=== PATIENT | female | born 1990 | race American Indian/Alaskan Native ===

== ENCOUNTER 2020-06-27 14:34 | Inpatient (IN) | payer MEDICAID ==
[2020-06-27] MEDS ORDERED: LIDOCAINE (2%) 20 MG/1 ML VIAL 20 ML MDV INFILTRATI ONE (15:38)
[2020-06-27] MEDS ORDERED: NALOXONE 0.4 MG/1 ML INJ IV PRN (15:38)
[2020-06-27] MEDS ORDERED: ONDANSETRON 4 MG/2 ML INJ IV PRN (15:38)
[2020-06-27] MEDS ORDERED: MINERAL OIL 30 ML ORAL LIQD PO PRN (15:38)
[2020-06-27] MEDS ORDERED: METHYLERGONOVINE MALEATE 0.2 MG/ML VIAL IM PRN (15:38)
[2020-06-27] MEDS ORDERED: TERBUTALINE 1 MG/1 ML INJ SUB-Q PRN (15:38)
[2020-06-27] MEDS ORDERED: miSOPROStol 200 MCG TAB PR PRN (15:38)
[2020-06-27] MEDS ORDERED: fentaNYL 100 MCG/2 ML INJ IV PRN (15:38)
[2020-06-27] MEDS ORDERED: BUTORPHANOL 2 MG/1 ML INJ IV PRN (15:38)
[2020-06-27] MEDS ORDERED: OXYTOCIN DRIP 30 UNITS/500 ML BAG IV SCH ×2 (16:00)
[2020-06-27] MEDS ORDERED: LACTATED RINGERS 1,000 ML IV SCH (16:45)
[2020-06-27 17:54] LABS: Hemoglobin 10.7 gm/dl (10.1-14.3); Mean Corpuscular HGB Conc 33 % (30-34); Mean Corpuscular Volume 76 fl (79-97); Platelet Count 110 K/mm3 (140-440); Red Blood Count 4.37 M/mm3 (3.65-5.03); Red Cell Distribution Width 17.6 % (13.2-15.2)
[2020-06-27] MEDS ORDERED: AMPICILLIN/NS 2 GM/100 ML 2 GM/100 ML BAG IV ONE (19:00)
[2020-06-27] MEDS ORDERED: DINOPROSTONE 10 MG VAG SUPP VG ONE (19:38)
[2020-06-27] MEDS ORDERED: valACYclovir 500 MG TAB PO SCH (22:00)
[2020-06-27] MEDS: AMPICILLIN/NS 1 GM/50 ML 1 GM/50 ML BAG IV SCH (22:43)
[2020-06-28] MEDS ORDERED: FAMOTIDINE 20 MG TAB PO SCH (01:00)
[2020-06-28] MEDS ORDERED: LIDOCAINE (2%) 20 MG/1 ML VIAL 20 ML MDV INFILTRATI ONE (01:13)
--- NOTE | 2020-06-28 01:43 | History and Physical Report ---
History of Present Illness Date of examination: 06/28/20 Date of admission: 06/27/20 14:34 Chief complaint: induction of labor History of present illness: Pt is a 29 year old BEATRIS 06/30/20 at 39w5d presents for scheduled induction of labor secondary to morbid obesity. She reports contractions since 06/27/20 morning. She denies leakage of fluid or vaginal bleeding. She has had care at [facility] since 19 wks with comanagement by [facility] co mplicated by morbid obesity, genital herpes without lesion or prodrome, both parents are silent alpha thalassemia carriers, and GBS positive status. order desk caller provider notified that there was a delay in obtaining IV access on initial admission. Second call to on-call OB that patient progressed rapidly from 1 to 9 cm. 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: herpes (no lesion or prodrome ) Family/Genetic History: none Social history: no significant social history - Obstetrical History Expected Date of Delivery: 06/30/20 Actual Gestation: 39 Week(s) 5 Day(s) : 5 Para: 3 Hx # Term Pregnancies: 3 Number of Pregnancies: 0 Spontaneous Abortions: 0 Induced : 1 Number of Living Children: 3 Medications and Allergies Allergies Allergy/AdvReac Type Severity Reaction Status Date / Time No Known Allergies Allergy Unverified 06/27/20 18:27 Home Medications Medication Instructions Recorded Confirmed Last Taken Type Famotidine [Pepcid] 20 mg PO BID 06/27/20 06/27/20 06/26/20 History Pnv,Calcium 72/Iron/Folic Acid 1 each PO DAILY 06/27/20 06/27/20 2 Days Ago History [ Plus Tablet] ~06/25/20 Valacyclovir HCl [Valtrex] 1,000 mg PO DAILY 06/27/20 06/27/20 06/26/20 History Active Meds: Active Medications Butorphanol Tartrate (Stadol) 2 mg IV Q2H PRN PRN Reason: Pain , Severe (7-10) Last Admin: 06/27/20 23:41 Dose: 2 mg Documented by: Ephedrine Sulfate (Ephedrine Sulfate) 10 mg IV Q2M PRN PRN Reason: Hypotension Famotidine (Pepcid) 20 mg PO BID [facility] Last Admin: 06/28/20 01:09 Dose: 20 mg Documented by: Fentanyl (Sublimaze) 100 mcg IV Q2H PRN PRN Reason: Pain,Severe (7-10) LABOR PAIN Last Admin: 06/27/20 22:41 Dose: 100 mcg Documented by: Oxytocin/Sodium Chloride (Pitocin/Ns 30 Unit/500ml) 30 units in 500 mls @ 2 mls/hr IV TITR DANN; Protocol Last Admin: 06/28/20 01:10 Dose: 2 ml/hr, 2 mls/hr Documented by: Lactated Ringer's (Lactated Ringers) 1,000 mls @ 125 mls/hr IV DIRECT DANN Oxytocin/Sodium Chloride (Pitocin/Ns 30 Unit/500ml) 30 units in 500 mls @ 40 mls/hr IV TITR DANN; Protocol Ampicillin Sodium (Ampicillin/Ns 1 Gm/50 Ml) 1 gm in 50 mls @ 100 mls/hr IV Q4H DANN; Protocol Last Admin: 06/27/20 22:43 Dose: 100 mls/hr Documented by: Methylergonovine Maleate (Methergine) 0.2 mg IM ONCE PRN PRN Reason: Uterine Bleeding Mineral Oil (Mineral Oil) 30 ml PO QHS PRN PRN Reason: Constipation Misoprostol (Cytotec) 800 mcg VT ONCE PRN PRN Reason: Uterine Bleeding Naloxone HCl (Naloxone) 0.1 mg IV Q2MIN PRN PRN Reason: Res Rate </= 8 or 02 SAT < 92% Ondansetron HCl (Zofran) 4 mg IV Q8H PRN PRN Reason: Nausea And Vomiting Terbutaline Sulfate (Brethine) 0.25 mg SUB-Q ONCE PRN PRN Reason: Hyperstimulation/Hypertonicity Valacyclovir HCl (Valtrex) 1,000 mg PO QDAY [facility] Last Admin: 06/27/20 22:43 Dose: 1,000 mg Documented by: Review of Systems All systems: negative - Vital Signs Vital signs: Vital Signs Pulse BP 90 141/87 06/27/20 15:23 06/27/20 15:23 Temp Pulse Resp BP Pulse Ox 99.3 F 108 H 20 138/86 97 06/27/20 21:45 06/28/20 01:33 06/27/20 23:41 06/28/20 01:26 06/28/20 01:33 - Physical Exam Breasts: Positive: deferred Abdomen: Positive: soft (obese, gravid ) Genitourinary (Female): Positive: normal external genitalia Uterus: Positive: enlarged (gravid ) Extremities: Positive: edema (trace ) - Obstetrical FHR: auscultation normal Uterine Contraction Monitor Mode: External Cervical Dilatation: 9 Cervical Effacement Percentage: 90 station: -1 Uterine Contraction Pattern: Regular Uterine Tone Measurement Phase: Resting Uterine Contraction Intensity: Strong/Firm Results Result Diagrams: 06/27/20 17:00 Abnormal lab results 06/27/20 Range/Units 17:00 MCV 76 L (79-97) fl MCH 25 L (28-32) pg RDW 17.6 H (13.2-15.2) % Plt Count 110 L (140-440) K/mm3 All other labs normal. Assessment and Plan A: IUP at 39w5d Morbid Obesity Late Entry to Care Gestational Hypertension Genital Herpes without lesion or prodrome Pt and father of baby are silent alpha thalassemia carriers GBS Positive s/p two doses of ampicillin P: Admit to labor and delivery Routine intrapartum care Closely monitor maternal and status
[2020-06-28 02:00] LABS: Alanine Aminotransferase 32 units/L (7-56); Albumin 3.3 g/dL (3.9-5); Blood Urea Nitrogen 5 mg/dL (7-17); Calcium 9.2 mg/dL (8.4-10.2); Hemolysis Index 8
[2020-06-28 02:12] LABS: BUN/Creatinine Ratio 8
--- NOTE | 2020-06-28 02:27 | Event Note ---
Date: 06/28/20 Pt called out due to patient discomfort. Category II tracing. SVE: /-1. Continue fluid bolus in preparation for epidural.
[2020-06-28] MEDS: ePHEDrine SULFATE 50 MG/1 ML INJ IV PRN ×2 (04:05→04:10)
--- NOTE | 2020-06-28 04:07 | Anesthesia Consultation ---
Anesthesia Consult and Med Hx Date of service: 06/28/20 - Airway Anesthetic Teeth Evaluation: Good ROM Head & Neck: Adequate Mental/Hyoid Distance: Adequate Mallampati Class: Class IV Intubation Access Assessment: Possibly Difficult - Pulmonary Exam CTA: Yes - Cardiac Exam Cardiac Exam: RRR - Pre-Operative Health Status ASA Pre-Surgery Classification: ASA3 Proposed Anesthetic Plan: Epidural, Spinal - Pulmonary Hx Smoking: No Hx Asthma: No COPD: No Hx Pneumonia: No Hx Sleep Apnea: No (likely undiagnosed) - Cardiovascular System Hx Hypertension: No Hx Heart Attack/AMI: No Hx Angina: No - Central Nervous System Hx Seizures: No Hx Psychiatric Problems: No - Gastrointestinal Hx Gastroesophageal Reflux Disease: Yes - Endocrine Hx Renal Disease: No Hx End Stage Renal Disease: No Hx Insulin Dependent Diabetes: No Hx Non-Insulin Dependent Diabetes: No Hx Hypothyroidism: No Hx Hyperthyroidism: No - Hematic Hx Anemia: No Hx Sickle Cell Disease: No - Other Systems Hx Alcohol Use: No Hx Obesity: Yes
[2020-06-28] MEDS ORDERED: NALOXONE 2 MG/2 ML INJ IV PRN (04:11)
[2020-06-28] MEDS ORDERED: NalbUPHINE 10 MG/1 ML INJ IV PRN (04:11)
[2020-06-28] MEDS ORDERED: diphenhydrAMINE 50 MG/ML VIAL IV PRN (04:11)
[2020-06-28] MEDS ORDERED: ePHEDrine SULFATE 50 MG/1 ML INJ IV PRN (04:11)
--- NOTE | 2020-06-28 04:11 | Progress Note ---
Labor Epidural - Labor Epidural Start Time: 03:24 Stop Time: 04:05 Performed by:: PACHECO MEDINA Procedure: Patient is requesting combined spinal epidural for labor and pain. H&P, labs were reviewed. All questions and concerns were answered. Informed consent was obtained. Timeout performed. Patient in sitting position on side of bed. Sterile prep and drape was performed. 3 mL 1% lidocaine skin wheal at L [3]-L [4]. 18-gauge Touhy epidural needle advanced without success. 3 mL 1% lidocaine skin wheal at L [2]-L [3]. 18-gauge Touhy epidural needle advanced to [id number] using air technique, [9cm]. 27-gauge spinal needle advanced, positive free-flowing CSF. Spinal dose of [Marcaine 3.375mg]. Epidural catheter advanced to [15] cm. [-] Aspiration, [-] test dose. Sterile dressing applied. Patient tolerated procedure well.
--- NOTE | 2020-06-28 04:25 | Event Note ---
Date: 06/28/20 On-call provider called to the bedside secondary to deceleration to 80s after hypotension. Received ephedrine (see nursing notes for exact). SVE: /-2. Continue to monitor clinically.
[2020-06-28] MEDS: AMPICILLIN/NS 1 GM/50 ML 1 GM/50 ML BAG IV SCH (05:00)
[2020-06-28] MEDS ORDERED: fentaNYL-BUPIV 2 MCG/ML-0.125% 200 MCG/100 ML BAG EPIDURAL SCH (05:00)
[2020-06-28] MEDS ORDERED: METOCLOPRAMIDE 10 MG/2 ML INJ ONE (06:51)
[2020-06-28] MEDS ORDERED: FAMOTIDINE 20 MG/2 ML INJ IV ONE ×2 (06:51→07:00)
[2020-06-28] MEDS ORDERED: BICITRA ORAL LIQD 30ML ONE (06:51)
[2020-06-28] MEDS ORDERED: ceFAZolin/Water 2 GM/20 ML 2 GM/20 ML SYRINGE IV ONE (06:51)
--- NOTE | 2020-06-28 06:55 | Event Note ---
Date: 06/28/20 Pt has made no further cervical change. The decision has been made to proceed with section. Anesthesia aware.
[2020-06-28] MEDS ORDERED: LACTATED RINGERS 1,000 ML IV SCH (07:00)
[2020-06-28] MEDS ORDERED: OXYTOCIN DRIP 30 UNITS/500 ML BAG IV SCH (07:00)
[2020-06-28] MEDS ORDERED: BICITRA ORAL LIQD 30ML PO ONE (07:00)
[2020-06-28] MEDS ORDERED: METOCLOPRAMIDE 10 MG/2 ML INJ IV ONE (07:00)
--- NOTE | 2020-06-28 07:04 | Anesthesia Day of Surgery ---
Anesthesia Day of Surgery - Day of Surgery Patient Examined: Yes Patient H&P Reviewed: Yes Patient is NPO: Yes Beta Blockers: No Cardiac Clearance: No Pulmonary Clearance: No Shahab's Test: N/A
[2020-06-28] MEDS ORDERED: LIDOCAINE 2%/EPINEPHRINE 1:200,000 VIAL (20 ML) INFILTRATI ONE (07:05)
[2020-06-28] MEDS ORDERED: ONDANSETRON 4 MG/2 ML INJ ONE (07:33)
[2020-06-28] MEDS ORDERED: KETOROLAC 30 MG/1 ML INJ ONE (07:33)
[2020-06-28] MEDS ORDERED: ceFAZolin/Water 2 GM/20 ML 4 GM/40 ML SYRINGE IV ONE (07:54)
--- NOTE | 2020-06-28 09:13 | Procedure Note ---
OB Delivery Note - Delivery Date of Delivery: 06/28/20 Surgeon: BETITO COURTNEY Estimated blood loss: other (600 mL) - Vaginal Delivery presentation: vertex Delivery position: OA Intrapartum events: PROM->1hr before delivery, meconium, gestational hypertension, prolonged active phase, uterine atony (s/p misoprostol 800 mcg per rectum ) Delivery induction: none Delivery augmentation: rupture of membranes, pitocin Delivery monitor: external FHT, external uterine Route of delivery: Delivery placenta: spontaneous Episiotomy: none Delivery laceration: 2nd degree Delivery repair: vicryl - Infant A at 1 minute: 7 at 5 minutes: 9 Gender: Female (4072g (8lb 15.6 oz) @ 0824 am)
[2020-06-28] MEDS ORDERED: LANOLIN/ZINC/DIMETHICONE (LANSINOH) 7 GM TP PRN ×2 (09:39→10:00)
[2020-06-28] MEDS ORDERED: diphenhydrAMINE 25 MG CAP PO PRN (10:00)
[2020-06-28] MEDS ORDERED: BENZOCAINE/MENTHOL 20/0.5% TOP SPRAY 56 GM TP PRN (10:00)
[2020-06-28] MEDS ORDERED: miSOPROStol 100 MCG TAB PR PRN (10:00)
[2020-06-28] MEDS ORDERED: PROMETHAZINE 25 MG RECT SUPP PR PRN (10:00)
[2020-06-28] MEDS ORDERED: ONDANSETRON 4 MG/2 ML INJ IV PRN (10:00)
[2020-06-28] MEDS ORDERED: WITCH HAZEL/ GLYCERIN PAD TP PRN (10:00)
[2020-06-28] MEDS ORDERED: PROMETHAZINE 25 MG TAB PO PRN (10:00)
[2020-06-28] MEDS: HYDROcodone/ACETAMINOPHEN 5-325 MG TAB PO PRN ×2 (10:15→17:52)
--- NOTE | 2020-06-28 14:31 | Post Anesthesia Evaluation ---
- Post Anesthesia Evaluation Patient Participated: Yes Airway Patent: Yes Stable Respiratory Function: Yes Nausea/Vomiting: No Temp > 96.8F: Yes Pain Manageable: Yes Adequeate Hydration: Yes Anesthesia Complications: No Block Receding Appropriately: Yes Patient on Ventilator: No
[2020-06-28] MEDS: IBUPROFEN 600 MG TAB PO SCH ×2 (16:00→22:24)
[2020-06-28] MEDS ORDERED: MAGNESIUM HYDROXIDE (MOM) ORAL LIQD UDC PO PRN (22:00)
[2020-06-28] MEDS: FERROUS SULFATE 325 MG TAB PO SCH (22:24)
[2020-06-28 22:30] LABS: Hemoglobin 9.5 gm/dl (10.1-14.3); Mean Corpuscular HGB Conc 34 % (30-34); Mean Corpuscular Volume 75 fl (79-97); Platelet Count 218 K/mm3 (140-440); Red Blood Count 3.72 M/mm3 (3.65-5.03); Red Cell Distribution Width 17.5 % (13.2-15.2)
[2020-06-29] MEDS: IBUPROFEN 600 MG TAB PO SCH ×2 (05:46→21:40)
--- NOTE | 2020-06-29 08:09 | Progress Note ---
Assessment and Plan A: S/p , PPD1 EBL 600, Hgb 9.5 on 06/28 Preeclampsia with severe features, PreE labs WNL, asymptomatic Bottle feeding, desires support w/ BF P: Return to L&D, initiate magnesium sulfate x24 hours Initiate labetalol PO consult Monitor clinical status closely Subjective - Subjective Date of service: 06/29/20 Principal diagnosis: s/p , PPD1 Patient reports: appetite normal, voiding normally, pain well controlled, flatus, ambulating normally, no bowel movement [place]: doing well, bottle feeding Objective - Vital Signs Latest vital signs: Vital Signs Temp Pulse Resp BP BP Pulse Ox 06/29/20 00:25 98.2 F 102 H 20 126/63 97 06/28/20 20:46 98.4 F 111 H 20 138/82 97 06/28/20 16:52 99.3 F 106 H 20 146/92 100 06/28/20 11:25 98.3 F 103 H 18 149/88 06/28/20 10:59 118 H 155/77 06/28/20 10:58 118 H 186/101 06/28/20 10:17 113 H 100 06/28/20 10:12 108 H 98 06/28/20 10:07 109 H 98 06/28/20 10:05 106 H 146/81 06/28/20 10:02 105 H 98 06/28/20 09:57 107 H 99 06/28/20 09:52 108 H 99 06/28/20 09:50 104 H 150/79 06/28/20 09:47 106 H 99 06/28/20 09:42 109 H 99 06/28/20 09:37 107 H 100 06/28/20 09:35 105 H 147/85 06/28/20 09:32 108 H 100 06/28/20 09:27 107 H 100 06/28/20 09:22 109 H 98 06/28/20 09:20 116 H 136/76 06/28/20 09:17 112 H 100 06/28/20 09:12 114 H 99 06/28/20 09:07 112 H 100 06/28/20 09:02 112 H 100 06/28/20 08:58 112 H 136/83 06/28/20 08:57 120 H 100 12/01/20 08:50 124 H 100 06/28/20 08:45 118 H 100 06/28/20 08:40 107 H 100 06/28/20 08:35 110 H 143/81 100 06/28/20 08:30 106 H 100 Intake and Output 06/28/20 06/29/20 06/29/20 23:59 07:59 15:59 Intake Total 1560 240 Output Total 900 Balance 660 240 Intake: Oral 840 240 Intake, Free Water 720 Output: Urine 900 Void 900 Other: Total, Intake Amount 240 240 Total, Output Amount 400 # Voids Void 1 1 - Exam Breasts: Present: normal Lungs: Present: Normal air movement Abdomen: Present: normal appearance, soft. Absent: distention, tenderness Uterus: Present: normal, firm, fundal height at umbilicus. Absent: bogginess, tenderness Extremities: Present: normal - Labs Labs: Abnormal lab results 06/28/20 Range/Units 21:15 WBC 16.6 H (4.5-11.0) K/mm3 Hgb 9.5 L (10.1-14.3) gm/dl Hct 28.0 L (30.3-42.9) % MCV 75 L (79-97) fl MCH 26 L (28-32) pg RDW 17.5 H (13.2-15.2) %
[2020-06-29] MEDS ORDERED: CALCIUM GLUCONATE 1000 MG/10 ML INJ IV ONE (08:10)
[2020-06-29] MEDS ORDERED: MAGNESIUM SULFATE 4 GM/100 ML BAG IV SCH (08:30)
[2020-06-29] MEDS ORDERED: MAGNESIUM SULFATE 4 GM/100 ML BAG IV ONE ×2 (08:44)
[2020-06-29] MEDS ORDERED: MAGNESIUM SULFATE 40GM/1000ML 40 GM/1,000 ML BAG IV ONE (08:44)
[2020-06-29] MEDS ORDERED: LACTATED RINGERS 1,000 ML ONE (08:45)
[2020-06-29] MEDS ORDERED: hydrALAZINE 20 MG/1 ML INJ IV PRN (09:00)
[2020-06-29] MEDS ORDERED: CALCIUM GLUCONATE 1,000 MG in SODIUM CHLORIDE 0.9% 100 ML IV SCH (09:00)
[2020-06-29] MEDS ORDERED: LACTATED RINGERS 1,000 ML IV SCH (09:00)
[2020-06-29] MEDS ORDERED: DIPHtheria,PERTUSSIS(ACELL),TETANUS VACCINE/PF 0.5 ML VIAL IM ONE (09:17)
[2020-06-29] MEDS ORDERED: MEASLES, MUMPS & RUBELLA 12,500 UNIT/0.5 ML VACCINE SUB-Q ONE (09:17)
[2020-06-29] MEDS: MAGNESIUM SULFATE 40GM/1000ML 40 GM/1,000 ML BAG IV SCH (09:20)
[2020-06-29] MEDS: FERROUS SULFATE 325 MG TAB PO SCH (21:40)
[2020-06-30] MEDS: MAGNESIUM SULFATE 40GM/1000ML 40 GM/1,000 ML BAG IV SCH (04:14)
[2020-06-30] MEDS: IBUPROFEN 600 MG TAB PO SCH (07:25)
--- NOTE | 2020-06-30 08:19 | Progress Note ---
Assessment and Plan A: S/p , PPD2 EBL 600, Hgb 9.5 on 06/28, acute on chronic anemia due to related blood loss Preeclampsia with severe features, PreE labs WNL, completing 24 hrs Magnesium Sulfate 12/ @ 9am BP well controlled on PO labetalol Headache 4/10 on pain scale Concerns about P: Ferrous sulfate supplementation D/C Magnesium Sulfate today Motrin PRN for GARZA Will hand express and continue to breastfeed Discharge today Subjective - Subjective Date of service: 06/30/20 Principal diagnosis: s/p , PPD1 Interval history: PPD2 s/p complicated by preeclampsia with severe features. Patient reports: pain well controlled, no voiding normally (knutson catheter in place ) : doing well, in NICU (in NICU while mother is on magnesium) Objective - Vital Signs Latest vital signs: Vital Signs Temp Pulse Resp BP BP Pulse Ox 06/30/20 08:02 94 H 100 06/30/20 07:57 93 H 100 06/30/20 07:52 92 H 100 06/30/20 07:47 95 H 100 06/30/20 07:42 98 H 100 06/30/20 07:37 94 H 100 06/30/20 07:32 86 99 06/30/20 07:27 103 H 100 06/30/20 07:22 91 H 99 06/30/20 07:17 92 H 99 06/30/20 07:12 89 137/79 100 06/30/20 07:07 87 100 06/30/20 07:02 83 100 06/30/20 06:57 98 H 100 06/30/20 06:52 91 H 99 06/30/20 06:47 89 99 06/30/20 06:42 106 H 100 06/30/20 06:37 80 99 06/30/20 06:32 89 98 06/30/20 06:27 88 100 06/30/20 06:22 90 100 06/30/20 06:17 89 100 06/30/20 06:16 74 88 06/30/20 06:12 79 117/63 99 06/30/20 06:07 79 99 06/30/20 06:02 77 99 06/30/20 05:57 95 H 99 06/30/20 05:52 89 98 06/30/20 05:47 87 98 06/30/20 05:42 86 98 06/30/20 05:37 86 98 06/30/20 05:32 86 98 06/30/20 05:27 84 98 06/30/20 05:22 86 98 06/30/20 05:17 83 98 06/30/20 05:12 79 115/62 99 06/30/20 05:07 77 100 06/30/20 05:02 79 100 06/30/20 04:57 81 99 06/30/20 04:52 81 100 06/30/20 04:47 91 H 99 06/30/20 04:42 91 H 100 06/30/20 04:37 82 97 06/30/20 04:35 88 90 06/30/20 04:32 82 94 06/30/20 04:29 80 94 06/30/20 04:27 73 97 06/30/20 04:24 87 92 06/30/20 04:22 82 98 06/30/20 04:17 89 99 06/30/20 04:12 82 121/66 100 06/30/20 04:07 84 99 06/30/20 04:02 83 99 06/30/20 03:57 80 99 06/30/20 03:52 82 100 06/30/20 03:47 84 100 06/30/20 03:42 88 99 06/30/20 03:37 94 H 100 06/30/20 03:32 82 100 06/30/20 03:27 84 99 06/30/20 03:22 82 100 06/30/20 03:17 90 100 06/30/20 03:12 86 130/72 06/30/20 03:07 92 H 99 06/30/20 03:02 90 100 06/30/20 02:57 94 H 100 06/30/20 02:52 91 H 100 06/30/20 02:47 85 100 06/30/20 02:42 80 100 06/30/20 02:37 85 99 06/30/20 02:32 91 H 98 06/30/20 02:27 88 99 06/30/20 02:22 95 H 99 06/30/20 02:17 88 98 06/30/20 02:12 88 104/54 97 06/30/20 02:07 89 98 06/30/20 02:02 88 98 06/30/20 01:57 86 98 06/30/20 01:52 87 99 06/30/20 01:47 85 96 06/30/20 01:42 84 99 06/30/20 01:39 87 94 06/30/20 01:37 86 97 06/30/20 01:32 88 93 06/30/20 01:27 90 99 06/30/20 01:22 87 99 06/30/20 01:17 101 H 100 06/30/20 01:12 93 H 124/72 98 06/30/20 01:07 100 H 98 06/30/20 01:02 97 H 99 06/30/20 00:57 91 H 99 06/30/20 00:52 90 99 06/30/20 00:47 91 H 99 06/30/20 00:42 95 H 99 06/30/20 00:37 97 H 100 06/30/20 00:32 107 H 99 06/30/20 00:27 105 H 99 06/30/20 00:22 102 H 100 06/30/20 00:17 105 H 100 06/30/20 00:12 94 H 120/67 99 06/30/20 00:07 93 H 99 06/30/20 00:02 93 H 99 06/29/20 23:57 95 H 99 06/29/20 23:52 100 H 99 06/29/20 23:47 97 H 99 06/29/20 23:42 93 H 99 06/29/20 23:37 153 H 100 06/29/20 23:32 168 H 100 06/29/20 23:27 97 H 98 06/29/20 23:22 100 H 99 06/29/20 23:17 102 H 99 02 23:12 100 H 120/56 99 06/29/20 23:07 99 H 100 06/29/20 23:02 95 H 100 06/29/20 22:57 94 H 100 06/29/20 22:52 100 H 99 06/29/20 22:47 96 H 99 02 22:42 103 H 100 06/29/20 22:37 99 H 99 06/29/20 22:32 95 H 99 06/29/20 22:27 99 H 100 06/29/20 22:22 95 H 99 12/02/20 22:17 100 H 99 06/29/20 22:12 103 H 133/75 99 06/29/20 22:07 105 H 100 06/29/20 22:02 100 H 99 06/29/20 21:57 100 H 100 06/29/20 21:52 117 H 99 06/29/20 21:46 96 H 100 06/29/20 21:43 100 H 134/80 06/29/20 21:42 96 H 134/80 06/29/20 21:41 103 H 99 06/29/20 21:40 18 06/29/20 21:36 97 H 100 06/29/20 21:31 99 H 100 06/29/20 21:26 100 H 100 06/29/20 21:21 101 H 100 06/29/20 21:16 97 H 100 06/29/20 21:12 105 H 142/60 06/29/20 21:11 112 H 100 06/29/20 21:06 103 H 99 06/29/20 21:01 104 H 99 06/29/20 20:56 103 H 100 06/29/20 20:51 96 H 100 06/29/20 20:46 103 H 100 06/29/20 20:41 100 H 99 06/29/20 20:36 95 H 100 06/29/20 20:31 100 H 100 06/29/20 20:26 101 H 100 06/29/20 20:21 97 H 100 06/29/20 20:16 93 H 100 06/29/20 20:12 93 H 136/76 06/29/20 20:11 94 H 100 06/29/20 20:06 98 H 100 06/29/20 20:01 95 H 100 06/29/20 19:56 108 H 100 06/29/20 19:51 108 H 100 06/29/20 19:50 97.9 F 96 H 20 130/80 100 06/29/20 19:46 92 H 100 06/29/20 19:45 99 H 130/80 06/29/20 19:41 95 H 100 06/29/20 19:36 98 H 100 06/29/20 19:34 116 H 0 L 06/29/20 19:31 105 H 100 06/29/20 19:26 102 H 100 06/29/20 19:21 100 H 100 06/29/20 19:16 111 H 100 06/29/20 19:12 100 H 144/88 06/29/20 19:11 105 H 100 06/29/20 19:06 106 H 100 06/29/20 19:01 98 H 100 06/29/20 18:56 96 H 100 06/29/20 18:51 101 H 100 06/29/20 18:46 99 H 100 06/29/20 18:41 102 H 100 06/29/20 18:36 104 H 99 06/29/20 18:31 109 H 100 06/29/20 18:26 106 H 100 06/29/20 18:21 107 H 100 06/29/20 18:16 108 H 100 06/29/20 18:12 102 H 134/80 06/29/20 18:11 108 H 100 06/29/20 18:06 104 H 99 06/29/20 18:01 104 H 99 06/29/20 17:56 105 H 100 06/29/20 17:51 105 H 99 06/29/20 17:46 98 H 99 06/29/20 17:41 101 H 99 06/29/20 17:36 99 H 99 06/29/20 17:31 99 H 98 06/29/20 17:26 103 H 99 06/29/20 17:21 95 H 99 06/29/20 17:16 97 H 99 06/29/20 17:12 88 141/80 06/29/20 17:11 94 H 100 06/29/20 17:06 102 H 99 06/29/20 17:01 109 H 100 06/29/20 16:56 105 H 100 06/29/20 16:52 88 64 L 06/29/20 16:51 103 H 100 06/29/20 16:46 100 H 99 06/29/20 16:41 97 H 100 06/29/20 16:36 93 H 100 06/29/20 16:31 96 H 100 06/29/20 16:26 97 H 100 06/29/20 16:21 107 H 100 06/29/20 16:16 104 H 100 06/29/20 16:12 105 H 137/81 06/29/20 16:11 102 H 100 06/29/20 16:06 102 H 100 06/29/20 16:01 101 H 100 06/29/20 15:56 97 H 100 06/29/20 15:51 167 H 0 L 06/29/20 15:46 95 H 100 06/29/20 15:41 116 H 98 06/29/20 15:36 109 H 100 06/29/20 15:31 102 H 100 06/29/20 15:26 105 H 100 06/29/20 15:21 99 H 100 06/29/20 15:16 107 H 99 06/29/20 15:12 98 H 139/82 06/29/20 15:11 105 H 100 06/29/20 15:06 102 H 100 06/29/20 15:01 105 H 99 06/29/20 14:56 103 H 99 06/29/20 14:51 98 H 99 06/29/20 14:46 102 H 100 06/29/20 14:41 100 H 100 06/29/20 14:36 102 H 100 06/29/20 14:31 107 H 99 06/29/20 14:26 101 H 100 06/29/20 14:21 98 H 100 06/29/20 14:16 103 H 99 06/29/20 14:12 95 H 125/68 06/29/20 14:11 98 H 99 06/29/20 14:06 97 H 99 06/29/20 14:01 102 H 100 06/29/20 13:56 101 H 100 06/29/20 13:51 109 H 99 06/29/20 13:46 104 H 100 06/29/20 13:41 105 H 100 06/29/20 13:36 107 H 100 06/29/20 13:31 110 H 98 06/29/20 13:26 111 H 97 06/29/20 13:21 102 H 99 06/29/20 13:16 97 H 99 06/29/20 13:12 103 H 148/84 06/29/20 13:11 102 H 100 06/29/20 13:06 94 H 99 06/29/20 13:01 91 H 99 06/29/20 12:56 100 H 99 06/29/20 12:51 95 H 100 06/29/20 12:46 100 H 100 06/29/20 12:41 96 H 98 06/29/20 12:36 107 H 99 06/29/20 12:31 108 H 100 06/29/20 12:26 91 H 100 06/29/20 12:21 85 99 06/29/20 12:16 89 98 06/29/20 12:12 81 144/81 06/29/20 12:11 88 96 06/29/20 12:06 89 98 06/29/20 12:01 90 98 06/29/20 11:56 91 H 98 06/29/20 11:51 89 98 06/29/20 11:46 83 99 06/29/20 11:41 83 100 06/29/20 11:36 87 98 06/29/20 11:31 74 98 06/29/20 11:29 94 H 93 06/29/20 11:26 82 97 06/29/20 11:21 86 98 06/29/20 11:16 86 97 06/29/20 11:12 84 126/80 06/29/20 11:11 88 99 06/29/20 11:06 77 98 06/29/20 11:01 78 97 06/29/20 10:56 80 98 06/29/20 10:51 90 99 06/29/20 10:46 84 99 06/29/20 10:41 86 98 06/29/20 10:36 86 98 06/29/20 10:31 81 99 06/29/20 10:26 86 98 06/29/20 10:21 81 97 06/29/20 10:16 79 97 06/29/20 10:12 83 134/77 06/29/20 10:11 81 96 06/29/20 10:06 95 H 99 06/29/20 10:01 105 H 100 06/29/20 09:57 89 94 06/29/20 09:56 72 98 06/29/20 09:51 80 98 06/29/20 09:46 88 98 06/29/20 09:41 90 99 06/29/20 09:36 90 100 02 09:31 87 99 06/29/20 09:26 93 H 100 06/29/20 09:21 93 H 99 06/29/20 09:16 98 H 100 06/29/20 09:11 96 H 98 06/29/20 09:06 84 97 06/29/20 09:01 90 97 06/29/20 08:56 96 H 97 06/29/20 08:52 84 133/63 06/29/20 08:51 98 H 96 Intake and Output 06/29/20 06/30/20 06/30/20 23:59 07:59 15:59 Intake Total 945 Output Total 3450 1050 Balance -3450 -105 Intake: IV 945 MAGNESIUM SULFATE 40GM/ 945 1000ML 40 gm In 1,000 ml @ 2 GM/HR 50 mls/hr IV DIRECT DANN Rx#:[id number] Output: Urine 3450 1050 Indwelling Catheter 3450 1050 Other: Total, Output Amount 1350 500 - Exam Breasts: Present: normal Abdomen: Present: normal appearance, soft Uterus: Present: firm, fundal height below umbilicus. Absent: bogginess Extremities: Present: normal - Labs Labs: Abnormal lab results 06/29/20 06/30/20 Range/Units 20:46 02:20 Magnesium 4.20 H 4.70 H (1.7-2.3) mg/dL
--- NOTE | 2020-06-30 08:24 | Discharge Summary ---
Providers - Providers Date of Admission: 06/27/20 14:34 Date of discharge: 06/30/20 Attending physician: BETITO COURTNEY 06/28/20 09:39 Consult to Tie In Machine Operator [CONS] Routine Reason For Exam: assistance with , SNS Primary care physician: BETITO COURTNEY Hospitalization Reason for admission: active labor, IUP at term Delivery: Episiotomy: none Laceration: none Other procedures: none complications: other (preeclampsia with severe features ) Discharge diagnosis: IUP at term delivered baby: male Hospital course: Pt presented in active labor and progressed to of viable . She was found to have preeclampsia with severe features and received magnesium sulfate infusion x24 hours. BP controlled on PO Labetalol. She met discharge criteria on PPD2. Condition at discharge: Good Disposition: DC- TO HOME OR SELFCARE Plan - Discharge Medications Prescriptions: Ferrous Sulfate [Feosol 325 MG tab] 325 mg PO BID #60 tablet labetaloL [Labetalol 100mg TAB] 100 mg PO BID #60 tablet Ibuprofen [Motrin] 600 mg PO Q6H PRN #60 tablet PRN Reason: Pain - Provider Discharge Summary Activity: routine, no sex for 6 weeks, no heavy lifting 4 weeks, no strenuous exercise Diet: routine Instructions: routine Additional instructions: [] Smoking cessation referral if applicable(refer to patient education folder for contact #) [] Refer to [facility] Booklet Call your doctor immediately for: * Fever > 100.5 * Heavy vaginal bleeding ( >1 pad per hour) * Severe persistent headache * Shortness of breath * Reddened, hot, painful area to leg or breast * Drainage or odor from incision. * Keep incision clean and dry at all times and follow doctor's instructions regarding bathing/showering - Follow up plan Follow up: BETITO COURTNEY MD [Primary Care Provider] - 7 Days (Please call to schedule appointment.)
[2020-06-30] MEDS: FERROUS SULFATE 325 MG TAB PO SCH (10:01)
[2020-06-30 14:18] VITALS: BP 120/71
== END 2020-06-30 15:07 | disposition home or self-care (01) | DRG 774 ==
LOC: LD 14:34 → OB 06-28 11:30 → LD 06-29 08:48 → OB 06-30 09:36
PROVIDERS: ADMIT Obstetrics & Gynecology; ATTEND Obstetrics & Gynecology
PROC: 10E0XZZ Delivery of Products of Conception, External Approach (ICD-10-PCS; principal; 2020-06-28)
PROC: 0KQM0ZZ Repair Perineum Muscle, Open Approach (ICD-10-PCS; 2020-06-28)
PROC: 3E0234Z Introduction of Serum, Toxoid and Vaccine into Muscle, Percutaneous Approach (ICD-10-PCS; 2020-06-29)
PROC: 3E0134Z Introduction of Serum, Toxoid and Vaccine into Subcutaneous Tissue, Percutaneous Approach (ICD-10-PCS; 2020-06-29)
DX: O77.0 Labor and delivery complicated by meconium in amniotic fluid (principal); O98.32 Other infections with a predominantly sexual mode of transmission complicating childbirth; Z37.0 Single live birth; O70.1 Second degree perineal laceration during delivery; O14.14 Severe pre-eclampsia complicating childbirth; Z20.828 Contact with and (suspected) exposure to other viral communicable diseases; D62 Acute posthemorrhagic anemia; O99.02 Anemia complicating childbirth; O42.02 Full-term premature rupture of membranes, onset of labor within 24 hours of rupture; O62.2 Other uterine inertia; O13.4 Gestational [pregnancy-induced] hypertension without significant proteinuria, complicating childbirth; O26.53 Maternal hypotension syndrome, third trimester; O99.62 Diseases of the digestive system complicating childbirth; K21.9 Gastro-esophageal reflux disease without esophagitis; O99.214 Obesity complicating childbirth; O99.824 Streptococcus B carrier state complicating childbirth; E66.01 Morbid (severe) obesity due to excess calories; A60.00 Herpesviral infection of urogenital system, unspecified; Z23 Encounter for immunization; Z3A.39 39 weeks gestation of pregnancy; Z79.899 Other long term (current) drug therapy
CPT/HCPCS: 36415; 80053; 83735; 85027; 86592; 86850; 86900; 86901; 88307; G0378; J0290; J0595; J1885; J2405; J2590; J2765; J3010; J3475; J7120; U0003

== ENCOUNTER 2020-08-10 06:07 | Day surgery (SDC) | payer MEDICAID ==
[2020-08-04 10:32] LABS: Hematocrit 36.4 % (30.3-42.9); Hemoglobin 11.7 gm/dl (10.1-14.3); Mean Corpuscular HGB Conc 32 % (30-34); Mean Corpuscular Volume 75 fl (79-97); Platelet Count 333 K/mm3 (140-440); Red Blood Count 4.84 M/mm3 (3.65-5.03); Red Cell Distribution Width 19.4 % (13.2-15.2)
--- NOTE | 2020-08-09 17:37 | History and Physical Report ---
History of Present Illness Date of examination: 08/09/20 Chief complaint: Undesired Fertility History of present illness: Pt is 29 year old presents for surgical sterilization. She is aware of long acting reversible contraceptives and desires to proceed. Past History Past Medical History: other (H/o Preeclampsia) Past Surgical History: no surgical history Family/Genetic History: none Social history: no significant social history - Obstetrical History : 5 Para: 4 Hx # Term Pregnancies: 4 Number of Pregnancies: 0 Spontaneous Abortions: 0 Induced : 1 Number of Living Children: 4 Medications and Allergies Allergies Allergy/AdvReac Type Severity Reaction Status Date / Time No Known Allergies Allergy Unverified 08/02/20 15:12 Home Medications Medication Instructions Recorded Confirmed Last Taken Type No Known Home Medications [No 08/02/20 08/02/20 Unknown History Reported Home Medications] Active Meds: Active Medications Lactated Ringer's (Lactated Ringers) 1,000 mls @ 75 mls/hr IV DIRECT DANN Cefazolin Sodium 3 gm/ Sodium (Chloride) 100 mls @ 100 mls/30 min IV PREOP NR; Protocol Review of Systems All systems: negative - Vital Signs Vital signs: Vital Signs Temp Pulse Resp BP Pulse Ox 98.1 F 96 H 20 151/103 99 08/04/20 09:50 08/04/20 09:50 08/04/20 09:50 08/04/20 09:50 08/04/20 09:50 Temp Pulse Resp BP Pulse Ox 98.1 F 96 H 20 151/103 99 08/04/20 09:50 08/04/20 09:50 08/04/20 09:50 08/04/20 09:50 08/04/20 09:50 - Physical Exam Breasts: Positive: deferred Cardiovascular: Regular rate Lungs: Positive: Clear to auscultation Abdomen: Positive: soft (obese) Genitourinary (Female): Positive: normal external genitalia (candidiasis present ) Extremities: Positive: normal Results Result Diagrams: 08/04/20 10:00 All other labs normal. Assessment and Plan A: Undesired Fertility Morbid Obesity P: Proceed with laparoscopic bilateral tubal ligation and other indicate procedures
[~2020-08-10 06:07] MED LIST: ACETAMINOPHEN 500 MG TAB PO SCH; CELECOXIB 200 MG CAP PO NR; LACTATED RINGERS 1,000 ML IV SCH; MAGNESIUM OXIDE 400 MG TAB PO SCH; MIDAZOLAM 2 MG/2 ML INJ IV NR
[2020-08-10] MEDS ORDERED: ONDANSETRON 4 MG/2 ML INJ IV PRN (07:18)
[2020-08-10] MEDS ORDERED: HYDROmorphone 1 MG/1 ML INJ IV PRN (07:18)
--- NOTE | 2020-08-10 07:20 | Anesthesia Day of Surgery ---
Anesthesia Day of Surgery - Day of Surgery Patient Examined: Yes Patient H&P Reviewed: Yes Patient is NPO: Yes
--- NOTE | 2020-08-10 07:22 | Anesthesia Consultation ---
Anesthesia Consult and Med Hx Date of service: 08/10/20 - Airway Anesthetic Teeth Evaluation: Good ROM Head & Neck: Adequate Mental/Hyoid Distance: Adequate Mallampati Class: Class II Intubation Access Assessment: Good - Pre-Operative Health Status ASA Pre-Surgery Classification: ASA3 Proposed Anesthetic Plan: General - Pulmonary Hx Smoking: No Hx Asthma: No Hx Respiratory Symptoms: No (+2FS) COPD: No Hx Pneumonia: No Hx Sleep Apnea: No (likely undiagnosed) - Cardiovascular System Hx Hypertension: Yes (Situational) Hx Heart Attack/AMI: No Hx Angina: No - Central Nervous System Hx Seizures: No Hx Psychiatric Problems: No - Gastrointestinal Hx Gastroesophageal Reflux Disease: Yes - Endocrine Hx Renal Disease: No Hx End Stage Renal Disease: No Hx Insulin Dependent Diabetes: No Hx Non-Insulin Dependent Diabetes: No Hx Hypothyroidism: No Hx Hyperthyroidism: No - Hematic Hx Anemia: No Hx Sickle Cell Disease: No - Other Systems Hx Alcohol Use: Yes (Occas) Hx Cancer: No Hx Obesity: Yes
[2020-08-10] MEDS ORDERED: ONDANSETRON 4 MG/2 ML INJ ONE (07:37)
[2020-08-10] MEDS ORDERED: dexAMETHasone 20 MG/5 ML VIAL ONE (07:37)
[2020-08-10] MEDS ORDERED: SUCCINYLCHOLINE CHLORIDE 200 MG/10 ML INJ MDV ONE (07:37)
[2020-08-10] MEDS ORDERED: GLYCOPYRROLATE 0.4 MG/2 ML INJ ONE (07:37)
[2020-08-10] MEDS ORDERED: ROCURONIUM 50 MG/5 ML INJ IV ONE (07:37)
[2020-08-10] MEDS ORDERED: propofoL 200 MG/20 ML VIAL IV ONE (07:37)
[2020-08-10] MEDS ORDERED: PHENYLEPHRINE/NS 1,000 MCG/10 ML SYRINGE (OR USE) IV ONE (07:37)
[2020-08-10] MEDS ORDERED: fentaNYL 100 MCG/2 ML INJ ONE ×2 (07:37→08:49)
[2020-08-10] MEDS ORDERED: LIDOCAINE MPF (2%) 20 MG/1 ML VIAL 5 ML ONE (07:37)
[2020-08-10] MEDS ORDERED: NEOSTIGMINE 10MG/10 ML INJ MDV ONE (07:37)
[2020-08-10] MEDS ORDERED: HYDROmorphone 1 MG/1 ML INJ ONE (07:47)
[2020-08-10] MEDS ORDERED: BUPIVACAINE/PF (0.5%) 5 MG/1 ML 30 ML VIAL INFILTRATI ONE ×2 (08:12→08:21)
[2020-08-10] MEDS ORDERED: SODIUM CHLORIDE 0.9% IRR 1,500 ML BOTTLE IR ONE (08:40)
[2020-08-10] MEDS ORDERED: SILVER NITRATE APPLICATOR 1 EA TP ONE (08:40)
--- NOTE | 2020-08-10 08:52 | Operative Report ---
Operative Report Operative Report: Date of procedure: August 10, 2019 Preoperative diagnosis: 1) Multiparity desires permanent sterilization 2) Morbid Obesity Postoperative diagnosis: Same Procedure: Laparoscopic Bilateral Tubal Ligation via Filshie clip method Surgeon: Niurka Horton M.D. Anesthesia: General endotracheal anesthesia Findings: 1) Anteverted uterus 2) Normal appearing uteurs, fallopian tubes and ovaries Estimated blood loss: minimal IV fluid: 700 mL Urine output: 100 mL clear prior to the procedure Specimens: None Complications: None. Counts correct 2 Disposition: Stable to PACU Indications for procedure: This patient is a 29 year old who presents for surgical sterilization. She is aware of long acting reversible contraceptive methods but she desires to proceed. Operation in detail: After the risks, benefits, alternatives and complications of the procedure were explained to the patient, she gave informed consent for the procedure. She was subsequently taken to the operating room with her IV noted to be running well and placed in the dorsal supine position with sequential compression devices functioning. General endotracheal anesthesia was then induced without difficulty. An exam under anesthesia was then performed yielding a 8-10 wk sized anteverted uterus. The patient was then placed in placement dorsal lithotomy position and prepped and draped in normal sterile fashion. A timeout was then performed. The bladder was then drained of urine yielding [] mL of clear urine. An open sided speculum was placed into the vagina for visualization of the cervix. A single-tooth tenaculum was placed on the anterior lip of the cervix for traction. A uterine manipulator was then placed. The single-tooth tenaculum and speculum were then removed from the vagina. The surgeon's gloves were then changed. Attention was then turned to entry into the abdominal cavity. A 5 mm infraumbilical incision was made with an 11 blade. The skin was grasped on either side of the umbilicus and tented up. The Veres needle was placed into the peritoneal cavity, confirmed with a saline drop test. The abdomen was then insufflated with CO2 gas to a pressure of 15 mmHg. A 5 mm Visiport trocar was then placed. An anatomic survey was then performed with findings as indicated above. A second trocar site was created 4 cm superior to the pubic symphysis in the midline measuring 8 mm. An 8 mm trocar was then placed under direct visualization. The patient was placed in the Trendelenburg position. The uterus was elevated, and two Filshie clips were then placed across the right and left fallopian tubes. At this time, all instruments were removed from the abdominal cavity. The pneumoperitoneum was released. The trocars were removed atraumatically. The incisions were then infiltrated with half percent Marcaine. The incisions were then reapproximated with 4-0 Vicryl in a subcuticular fashion. They were then covered with skin glue. All instruments were then removed atraumatically from the vagina. At this time the procedure was ended. The patient was placed into the dorsal supine position and extubated without difficulty. She was subsequently taken to the PACU in stable condition. All instrument, needle and lap counts were correct 2.
--- NOTE | 2020-08-10 08:58 | Short Stay Summary ---
Short Stay Documentation Date of service: 08/10/20 - History H&P: dictated Social history: no significant social history - Allergies and Medications Current Medications: Allergies No Known Allergies Allergy (Unverified 08/02/20 15:12) Home Medications Medication Instructions Recorded Confirmed Last Taken Type RX: No Known Home Medications [No 08/02/20 08/02/20 Unknown History Reported Home Medications] Active Medications Acetaminophen (Acetaminophen 500 Mg Tab) 1,000 mg PO ONCE DANN Stop: 08/10/20 23:00 Celecoxib (Celecoxib 200 Mg Cap) 400 mg PO PREOP NR Stop: 08/10/20 23:00 Hydromorphone HCl (Hydromorphone 1 Mg/1 Ml Inj) 0.25 mg IV Q10MIN PRN PRN Reason: Pain, Moderate (4-6) Stop: 08/10/20 23:00 Hydromorphone HCl (Hydromorphone 1 Mg/1 Ml Inj) 0.5 mg IV Q10MIN PRN PRN Reason: Pain , Severe (7-10) Stop: 08/10/20 23:00 Lactated Ringer's (Lactated Ringers) 1,000 mls @ 75 mls/hr IV DIRECT DANN Cefazolin Sodium 3 gm/ Sodium (Chloride) 100 mls @ 100 mls/30 min IV PREOP NR; Protocol Stop: 08/10/20 23:01 Magnesium Oxide (Magnesium Oxide 400 Mg Tab) 400 mg PO ONCE DANN Stop: 08/10/20 23:00 Midazolam HCl (Midazolam 2 Mg/2 Ml Inj) 2 mg IV PREOP NR Stop: 08/10/20 23:59 Ondansetron HCl (Ondansetron 4 Mg/2 Ml Inj) 4 mg IV ONCE PRN PRN Reason: Nausea And Vomiting Stop: 08/10/20 23:00 - Physical exam Breasts: deferred - Brief post op/procedure progress note Date of procedure: 08/10/20 Pre-op diagnosis: Undesired Fertility, Morbid Obesity Post-op diagnosis: same Procedure: Laparoscopic Bilateral Tubal Ligation via Filshie Clip Method Anesthesia: GETA Findings: 1) Small anteverted uterus 2) Normal appearing uterus, ovaries and tubes Surgeon: BETITO HORTON Estimated blood loss: minimal (10 mL) Pathology: none Condition: stable - Hospital course Hospital course: Pt underwent laparoscopic bilateral tubal ligation which she tolerated well. She was observed in the PACU until she met discharge criteria. She will follow up in the office in [address] Horton. - Disposition Condition at discharge: Stable Disposition: [id number] TO HOME OR SELFCARE - Discharge Diagnoses (1) Encounter for sterilization Status: Acute (2) Morbid obesity Status: Acute Short Stay Discharge Plan Activity: other (Nothing in vagina, no tub baths, no heavy lifting for four weeks ) Weight Bearing Status: Full Weight Bearing Diet: regular Wound: keep clean and dry Follow up with: AMAIRANI KIDD MD [Primary Care Provider] - 7 Days BETITO HORTON MD [Staff Physician] - 14 Days (Please call to schedule a postop appt ) Prescriptions: RX: Triamcinolone 0.1% [Kenalog 0.1% CREAM] 1 applic TP BID PRN 14 Days #1 tube PRN Reason: Itching Ibuprofen [Motrin] 800 mg PO Q8HR PRN #30 tablet PRN Reason: Pain, Moderate (4-6) RX: Nystatin Cream [Mycostatin Cream] 1 applic TP BID 14 Days tube oxyCODONE /ACETAMINOPHEN [Percocet 5/325] 1 tab PO Q6HR PRN #30 tablet PRN Reason: Pain
[2020-08-10] MEDS: HYDROmorphone 1 MG/1 ML INJ IV PRN ×3 (09:28→11:13)
[2020-08-10] MEDS ORDERED: VERAPAMIL 5 MG/2 ML INJ ONE (10:06)
[2020-08-10] MEDS: VERAPAMIL 5 MG/2 ML INJ IV NR ×2 (10:17→10:57)
[2020-08-10] MEDS ORDERED: IBUPROFEN 800 MG TAB PO PRN (11:00)
[2020-08-10] MEDS ORDERED: VERAPAMIL 5 MG/2 ML INJ IV SCH (11:00)
[2020-08-10 12:07] VITALS: BP 153/94
--- NOTE | 2020-08-10 14:07 | Post Anesthesia Evaluation ---
- Post Anesthesia Evaluation Patient Participated: Yes Airway Patent: Yes Stable Respiratory Function: Yes Nausea/Vomiting: No Temp > 96.8F: Yes Pain Manageable: Yes Adequeate Hydration: Yes Anesthesia Complications: No Block Receding Appropriately: Not Applicable Patient on Ventilator: No Other Comments: Pt with undiagnosed HTN. Dr. Horton wrote script for labetalol and will follow up.
== END 2020-08-10 12:30 | disposition home or self-care (01) ==
LOC: OR 06:07
PROVIDERS: ATTEND Obstetrics & Gynecology
DX: Z30.2 Encounter for sterilization (principal); I10 Essential (primary) hypertension; E66.01 Morbid (severe) obesity due to excess calories; K21.9 Gastro-esophageal reflux disease without esophagitis; Z72.89 Other problems related to lifestyle; Z79.899 Other long term (current) drug therapy; Z86.19 Personal history of other infectious and parasitic diseases; Z68.41 Body mass index [BMI] 40.0-44.9, adult; Z98.890 Other specified postprocedural states
CPT/HCPCS: 36415; 58671; 84703; 85027; J0330; J0690; J1100; J1170; J2250; J2370; J2405; J2704; J2710; J3010; J7120; U0003

== ENCOUNTER 2021-05-31 09:59 | Emergency (ER) | payer MEDICAID ==
[2021-05-31 10:09] VITALS: BP 157/104
--- NOTE | 2021-05-31 10:16 | Emergency Department Report ---
Minor Respiratory - HPI Chief Complaint: Upper Respiratory Infection Stated Complaint: FLU SYMPTOMS Time Seen by Provider: 05/31/21 10:15 Duration: 3 Days Pain Location: Other Severity: mild Minor Respiratory: Yes Rhinorrhea, Yes Able to Tolerate Fluids, Yes Sick Contacts, No Sore Throat, No Ear Pain, No Cough, No Hemoptysis, No Chest Pain, No Shortness of Breath, No Fever Other History: 30 yo AA comes to ER with a friend because "he is sick" and I feel like I'm getting it. They come with URI symptoms- hers is runny nose. no fever. no chills. no cp. no sob. non ill appearing on exam. 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 ED Review of Systems ROS: Stated complaint: FLU SYMPTOMS Other details as noted in HPI Comment: All other systems reviewed and negative ED Past Medical Hx - Past Medical History Previous Medical History?: Yes Hx Hypertension: Yes (Situational) Hx Heart Attack/AMI: No Hx Congestive Heart Failure: No Hx Diabetes: No Hx Deep Vein Thrombosis: No Hx Renal Disease: No Hx Sickle Cell Disease: No Hx Seizures: No Hx Asthma: No Hx COPD: No Hx HIV: No - Surgical History Past Surgical History?: No - Family History Family history: no significant - Social History Smoking Status: Never Smoker Substance Use Type: None - Medications Home Medications: Home Medications Medication Instructions Recorded Confirmed Last Taken Type Benzonatate [Tessalon Perles] 100 mg PO Q12H PRN #20 capsule 05/31/21 Unknown Rx predniSONE [Deltasone] 20 mg PO DAILY #5 tablet 05/31/21 Unknown Rx Minor Respiratory Exam - Exam General: Vital signs noted. No distress. Alert and acting appropriately. HEENT: Yes Moist Mucous Membranes, No Pharyngeal Erythema, No Pharyngeal Exudates, No Rhinorrhea, No Conjuctival Injection, No Frontal Tenderness, No Maxillary Tenderness Ear: Neither TM Bulge, Neither TM Erythema, Neither EAC Pain, Neither EAC Discharge Neck: Yes Supple, No Adenopathy Lungs: Yes Good Air Exchange, No Wheezes, No Ronchi, No Stridor, No Cough, No Labored Respirations, No Retractions, No Use of Accessory Muscles, No Other Abnormal Lung Sounds Heart: Yes Regular, No Murmur Abdomen: Yes Normal Bowel Sounds, No Tenderness, No Peritoneal Signs Skin: No Rash, No Edema Neurologic: Alert and oriented, no deficits. Musculoskeletal: Unremarkable. ED Course Vital Signs 05/31/21 10:05 Temperature 99.3 F Pulse Rate 100 H Respiratory 20 Rate Blood Pressure 157/104 [Right] O2 Sat by Pulse 100 Oximetry ED Medical Decision Making - Radiology Data Radiology results: report reviewed, image reviewed nap - Medical Decision Making hx htn- when she comes to MD- also noted in EMR no cp no sob ambulatory and non ill appearing on exam Vital Signs 05/31/21 10:05 Temperature 99.3 F Pulse Rate 100 H Respiratory 20 Rate Blood Pressure 157/104 [Right] O2 Sat by Pulse 100 Oximetry dc home with conservative management pt understands she should follow up with pcp in 48 hours for recheck. Understands rx/ follow up/ and symptom relief. Pt understands she should monitor her bp and on d/c has no cp or sob. - Differential Diagnosis uri Critical care attestation.: If time is entered above; I have spent that time in minutes in the direct care of this critically ill patient, excluding procedure time. ED Disposition Clinical Impression: URI (upper respiratory infection), Hypertension, Morbid obesity Disposition: HOME / SELF CARE / HOMELESS Is pt being admited?: No Does the pt Need Aspirin: No Condition: Stable Instructions: Viral Respiratory Infection, [id number], Hypertension (ED) Additional Instructions: over the counter sign and symptom relief stay well hydrated with water see pcp in 48 hours for recheck referral below consider covid19 immunization meds as ordered monitor your blood pressure Prescriptions: predniSONE [Deltasone] 20 mg PO DAILY #5 tablet Benzonatate [Tessalon Perles] 100 mg PO Q12H PRN #20 capsule PRN Reason: Cough Referrals: ARTUR CONNOR MD [Staff Physician] - 3-5 Days Time of Disposition: 10:33
--- NOTE | 2021-05-31 10:50 | XRay Report ---
CHEST 2 VIEWS INDICATION: cough. COMPARISON: None FINDINGS: Support devices: None. Heart: Within normal limits. Lungs/pleura: No acute air space or interstitial disease. No pneumothorax. Additional findings: None. IMPRESSION: No acute findings. Signer Name: Jatin Ryan Jr, MD Signed: 05/31/2021 10:45 AM Workstation Name: [id number]
== END 2021-05-31 11:00 | disposition home or self-care (01) ==
LOC: ED 09:59
DX: J06.9 Acute upper respiratory infection, unspecified (principal); I10 Essential (primary) hypertension; E66.01 Morbid (severe) obesity due to excess calories
CPT/HCPCS: 71046; 99283